=== PATIENT | male | born 1940 | race Caucasian/White ===

== ENCOUNTER 2016-11-12 07:48 | Inpatient (IN) | payer MEDICARE, BC ==
[~2016-11-12] VITALS: Ht 175.3 cm; Wt 122.1 kg
[2016-11-12 09:01] LABS: HEMOGLOBIN 17.1 gm/dl (14.0-17.5); RED BLOOD COUNT 5.9 M/UL (4.20-5.50); WHITE BLOOD COUNT 7.2 K/UL (4.5-11.0)
[2016-11-12 09:19] LABS: BUN/CREATININE RATIO 33 (0-10)
[2016-11-13 06:47] LABS: HEMOGLOBIN 15.7 gm/dl (14.0-17.5); RED BLOOD COUNT 5.47 M/UL (4.20-5.50); WHITE BLOOD COUNT 5.6 K/UL (4.5-11.0)
[2016-11-13 06:54] LABS: BUN/CREATININE RATIO 30 (0-10)
[2016-11-13] MEDS ORDERED: NORVASC 5 MG TAB5 MG PO (07:43)
[2016-11-13] MEDS ORDERED: DAYPRO PO (07:43)
[2016-11-13] MEDS ORDERED: LOPRESSOR 25 MG25 MG PO (07:44)
[2016-11-13] MEDS ORDERED: LISINOPRIL40 MG PO (07:44)
[2016-11-13] MEDS ORDERED: HYDROCHLOROTH12.5 MG PO (07:45)
[2016-11-13] MEDS ORDERED: LIPITOR TAB 2020 MG PO (07:46)
[2016-11-13] MEDS ORDERED: ENBREL25 MG SQ (07:47)
[2016-11-13] MEDS ORDERED: TEMOVATE30 GM TOP (07:47)
[2016-11-13] MEDS ORDERED: AMMONIUM LACTA140 GM TOP (07:47)
[2016-11-13] MEDS ORDERED: ELIQUIS 5 MG TAB5 MG PO (07:48)
[2016-11-13] MEDS ORDERED: XOPENEX0.63 MG/3 NEB (18:40)
== END 2016-11-13 19:07 | disposition home or self-care (01) | DRG 392 ==
LOC: ER1 07:48 → ZEROF 12:39 → M/S 13:46
PROVIDERS: Emergency Medicine; Internal Medicine Gastroenterology; ADMIT Internal Medicine Infectious Disease
PROC: 0DJ08ZZ Inspection of Upper Intestinal Tract, Via Natural or Artificial Opening Endoscopic (ICD-10-PCS; principal; 2016-11-13 11:17)
DX: K22.0 Achalasia of cardia (principal); J44.1 Chronic obstructive pulmonary disease with (acute) exacerbation; R13.14 Dysphagia, pharyngoesophageal phase; I10 Essential (primary) hypertension; E11.9 Type 2 diabetes mellitus without complications; F17.210 Nicotine dependence, cigarettes, uncomplicated; E78.5 Hyperlipidemia, unspecified; I48.91 Unspecified atrial fibrillation; Z86.718 Personal history of other venous thrombosis and embolism; E66.01 Morbid (severe) obesity due to excess calories; Z68.39 Body mass index [BMI] 39.0-39.9, adult; Z98.52 Vasectomy status; Z98.890 Other specified postprocedural states; Z79.899 Other long term (current) drug therapy; Z79.01 Long term (current) use of anticoagulants; F17.290 Nicotine dependence, other tobacco product, uncomplicated; E86.0 Dehydration; G47.30 Sleep apnea, unspecified; Z80.3 Family history of malignant neoplasm of breast
CPT/HCPCS: 36415; 70491; 74022; 80048; 80053; 82550; 82553; 83605; 83690; 83735; 83874; 84484; 85025; 85027; 85610; 85730; 87081; 87880; 93005; 94640; 96360; 96361; 99285; C9113; J2060; J2250; J3010; J7040; J7050; Q9962

== ENCOUNTER → 2016-11-21 | Outpatient (CLI) | payer MEDICARE, BC ==
[~2016-11-21] MED LIST: AMMONIUM LACTA140 GM TOP; DAYPRO PO; ELIQUIS 5 MG TAB5 MG PO; ENBREL25 MG SQ; HYDROCHLOROTH12.5 MG PO; LIPITOR TAB 2020 MG PO; LISINOPRIL40 MG PO; LOPRESSOR 25 MG25 MG PO; NORVASC 5 MG TAB5 MG PO; TEMOVATE30 GM TOP; XOPENEX0.63 MG/3 NEB
== END ==
LOC: RAD 08:52
DX: R13.10 Dysphagia, unspecified (principal); K22.4 Dyskinesia of esophagus
CPT/HCPCS: 74220

== ENCOUNTER 2021-06-27 16:44 | Inpatient (IN) | payer MEDICARE, BC ==
[~2021-06-27] VITALS: Ht 177.8 cm; Wt 96.2 kg
[2021-06-27 17:53] LABS: RED BLOOD COUNT 5.34 M/UL (4.20-5.50); WHITE BLOOD COUNT 10.4 K/UL (4.5-11.0)
[2021-06-27 18:05] LABS: BUN/CREATININE RATIO 23 (0-10)
[2021-06-28] MEDS ORDERED: LISINOPRIL40 MG PO (00:17)
[2021-06-28] MEDS ORDERED: POTASSIUM CHLO10 ME1 PO (00:18)
[2021-06-28] MEDS ORDERED: BUMETANIDE1 MG PO (00:18)
[2021-06-28] MEDS ORDERED: METOPROLOL SUCC50 MG PO (00:21)
[2021-06-28] MEDS ORDERED: LIPITOR TAB 2020 MG PO (00:21)
[2021-06-28] MEDS ORDERED: OMEPRAZOLE40 MG PO (00:22)
[2021-06-28] MEDS ORDERED: DOK100 MG PO (00:22)
[2021-06-28] MEDS ORDERED: FLOMAX 0.4 MG0.4 MG PO (00:22)
[2021-06-28] MEDS ORDERED: XARELTO20 MG PO (00:23)
[2021-06-28] MEDS ORDERED: NAMENDA5 MG PO (00:23)
[2021-06-28] MEDS ORDERED: PEPCID40 MG PO (00:24)
[2021-06-28] MEDS ORDERED: HYDROCODONE-AC1 EAC1 PO (00:25)
[2021-06-28] MEDS ORDERED: ALBUTEROL2.5 MG/3 M INH (00:28)
[2021-06-28] MEDS ORDERED: MELATONIN5 M2 PO (01:32)
[2021-06-28 06:41] LABS: HEMOGLOBIN 11.1 gm/dl (14.0-17.5); RED BLOOD COUNT 5.13 M/UL (4.20-5.50); WHITE BLOOD COUNT 8.4 K/UL (4.5-11.0)
[2021-06-28 06:56] LABS: BUN/CREATININE RATIO 23 (0-10)
[2021-06-29 06:34] LABS: HEMOGLOBIN 10.9 gm/dl (14.0-17.5); RED BLOOD COUNT 4.9 M/UL (4.20-5.50); WHITE BLOOD COUNT 6.8 K/UL (4.5-11.0)
[2021-06-29 07:37] LABS: BUN/CREATININE RATIO 23 (0-10)
== END 2021-06-29 17:22 | disposition home health service (06) | DRG 419 ==
LOC: ER1 16:44 → CDU 20:25 → MED SURG 4 20:25
PROVIDERS: Internal Medicine; Preventive Medicine Occupational Medicine; Surgery; ADMIT Internal Medicine
PROC: 0FT44ZZ Resection of Gallbladder, Percutaneous Endoscopic Approach (ICD-10-PCS; principal; 2021-06-29 08:43)
DX: K81.2 Acute cholecystitis with chronic cholecystitis (principal); I48.0 Paroxysmal atrial fibrillation; I10 Essential (primary) hypertension; E78.5 Hyperlipidemia, unspecified; F03.90 Unspecified dementia, unspecified severity, without behavioral disturbance, psychotic disturbance, mood disturbance, and anxiety; Z20.822 Contact with and (suspected) exposure to COVID-19; N40.0 Benign prostatic hyperplasia without lower urinary tract symptoms; M19.90 Unspecified osteoarthritis, unspecified site; J44.9 Chronic obstructive pulmonary disease, unspecified; F17.210 Nicotine dependence, cigarettes, uncomplicated; K21.9 Gastro-esophageal reflux disease without esophagitis; Z86.718 Personal history of other venous thrombosis and embolism; Z98.52 Vasectomy status; Z82.49 Family history of ischemic heart disease and other diseases of the circulatory system; Z88.8 Allergy status to other drugs, medicaments and biological substances; Z79.899 Other long term (current) drug therapy
CPT/HCPCS: 36415; 80053; 82248; 83690; 85025; 85652; 86140; 93005; 94640; 94760; 96374; 96375; 99285; C9113; J0690; J1100; J2001; J2250; J2270; J2405; J2543; J2704; J2710; J2765; J3010; J7030; J7120; U0002